=== PATIENT | female | born 1980 | race African-American/Black ===

== ENCOUNTER 2017-02-22 10:44 | Emergency (ER) | payer MEDICAID ==
[~2017-02-22] VITALS: Ht 170.2 cm; Wt 94.0 kg
[~2017-02-22 10:44] MED LIST: AMLO10TA80 PO; GLIP5TAB73 PO; Metformin Hcl PO; OMEP20TA80 PO; SITA25TA3 PO
[2017-02-22 12:13] LABS: BASOPHILS % 0.9 % (0.0-2.0); DIFFERENTIAL COMMENT 0; EOSINOPHILS % 0.6 % (0.0-5.0); HEMATOCRIT. 34.6 % (36.0-48.0); HEMOGLOBIN. 10.9 g/dL (12.0-16.0); LYMPHOCYTES % 36.9 % (20.0-50.0); MEAN CORPUSCULAR HGB CONC 31.6 g/dL (31.0-37.0); MEAN CORPUSCULAR VOLUME 72.6 fL (81.0-99.0); MEAN PLATELET VOLUME 7.6 fl (7.4-10.4); MONOCYTES % 6.5 % (2.0-8.0); NEUTROPHILS % 55.1 % (40.0-76.0); PLATELET 400 x1000/uL (130-400); RED BLOOD CELL COUNT 4.76 mill/uL (4.2-5.4); RED CELL DISTRIBUTION WIDTH 17.7 % (11.6-14.6); WHITE BLOOD COUNT 7.5 x1000/uL (4.5-11.0)
[2017-02-22 12:22] LABS: ALBUMIN 3.3 g/dL (3.4-5.0); ANION GAP 11; CALCIUM 9.4 mg/dL (8.5-10.1); CARBON DIOXIDE 25 mEq/L (21-32); CHLORIDE 107 mEq/L (98-107); INDEX HEMOLYSI 1 (1-3); INDEX ICTERIC 1 (1-4); INDEX LIPEMIC 1 (1-3); UREA NITROGEN BLOOD 5 mg/dL (7-21)
[2017-02-22 12:31] LABS: ALANINE AMINOTRANSFERASE 32 IU/L (13-61); eGFR > 60 mL/min (>60)
[2017-02-22 12:40] LABS: B-HCG QUANTITATIVE 17398 mIU/mL (<3)
[2017-02-22 13:35] LABS: HCG SCREEN POSITIVE
[2017-02-22 13:35] LABS: CLARITY URINE CLOUDY (CLEAR); COLOR URINE DARK YELLOW (YELLOW); GLUCOSE URINE NEGATIVE (NEGATIVE); KETONES URINE TRACE (NEGATIVE); LEUKOCYTE ESTERASE URINE NEGATIVE (NEGATIVE); NITRITE URINE NEGATIVE (NEGATIVE); OCCULT BLOOD URINE NEGATIVE (NEGATIVE); PROTEIN URINE NEGATIVE (NEGATIVE); SPECIFIC GRAVITY URINE 1.026 (1.005-1.030)
[2017-02-22 13:57] LABS: CALCIUM OXALATE CRYSTALS URINE 2+ /lpf
[2017-02-22 13:58] LABS: BACTERIA URINE TRACE; MUCUS URINE 1+ /lpf (< = 2+); SQUAMOUS EPITHELIAL CELL URINE 1+ /lpf (RARE/1+)
[2017-02-22 13:59] LABS: RBC URINE NONE SEEN /hpf (0-2); WBC URINE 0-2 /hpf (0-2)
[2017-02-22 14:20] VITALS: BP 122/86
== END 2017-02-22 14:21 | disposition home or self-care (01) ==
LOC: ER 12:40
DX: O24.311 Unspecified pre-existing diabetes mellitus in pregnancy, first trimester (principal); E11.9 Type 2 diabetes mellitus without complications; O10.919 Unspecified pre-existing hypertension complicating pregnancy, unspecified trimester; O26.891 Other specified pregnancy related conditions, first trimester; J45.909 Unspecified asthma, uncomplicated; K21.9 Gastro-esophageal reflux disease without esophagitis; Z3A.00 Weeks of gestation of pregnancy not specified
CPT/HCPCS: 36415; 80053; 81001; 84702; 84703; 85025; 99284

== ENCOUNTER 2017-03-19 07:18 | Emergency (ER) | payer MEDICAID ==
[~2017-03-19] VITALS: Ht 170.2 cm; Wt 94.0 kg
[2017-03-19] MEDS ORDERED: ACETAMINOPHEN 325MG TABLET PO ONE (08:00)
[2017-03-19 08:03] VITALS: BP 141/84
[2017-03-19 09:02] LABS: DIFFERENTIAL COMMENT 0; EOSINOPHILS % 0.5 % (0.0-5.0); HEMOGLOBIN. 10.8 g/dL (12.0-16.0); LYMPHOCYTES % 24.4 % (20.0-50.0); MEAN CORPUSCULAR HEMOGLOBIN 22.8 pg (28.0-32.0); MEAN CORPUSCULAR HGB CONC 31.7 g/dL (31.0-37.0); MEAN PLATELET VOLUME 7.1 fl (7.4-10.4); MONOCYTES % 5.9 % (2.0-8.0); NEUTROPHILS % 68.2 % (40.0-76.0); PLATELET 428 x1000/uL (130-400); RED BLOOD CELL COUNT 4.73 mill/uL (4.2-5.4); RED CELL DISTRIBUTION WIDTH 17.3 % (11.6-14.6)
[2017-03-19 09:30] LABS: ALANINE AMINOTRANSFERASE 27 IU/L (13-61); ALBUMIN 2.9 g/dL (3.4-5.0); ANION GAP 12; CALCIUM 8.9 mg/dL (8.5-10.1); CARBON DIOXIDE 24 mEq/L (21-32); CHLORIDE 104 mEq/L (98-107); INDEX HEMOLYSI 1 (1-3); INDEX ICTERIC 1 (1-4); INDEX LIPEMIC 1 (1-3); UREA NITROGEN BLOOD 7 mg/dL (7-21); eGFR > 60 mL/min (>60)
[2017-03-19 09:36] LABS: B-HCG QUANTITATIVE 101754 mIU/mL (<3)
[2017-03-19 10:32] LABS: CLARITY URINE CLOUDY (CLEAR); COLOR URINE YELLOW (YELLOW); GLUCOSE URINE NEGATIVE (NEGATIVE); KETONES URINE TRACE (NEGATIVE); LEUKOCYTE ESTERASE URINE TRACE (NEGATIVE); NITRITE URINE NEGATIVE (NEGATIVE); OCCULT BLOOD URINE TRACE (NEGATIVE); PROTEIN URINE NEGATIVE (NEGATIVE); SPECIFIC GRAVITY URINE 1.023 (1.005-1.030)
[2017-03-19 10:45] LABS: SQUAMOUS EPITHELIAL CELL URINE FEW /lpf (RARE/1+)
[2017-03-19 10:46] LABS: BACTERIA URINE TRACE
[2017-03-22 04:25] LABS: CHLAMYDIA TRACHOMATIS NAA Negative (Negative); NEISSERIA GONORRHOEAE NAA Negative (Negative)
== END 2017-03-19 12:56 | disposition home or self-care (01) ==
LOC: ER 07:18
DX: O26.891 Other specified pregnancy related conditions, first trimester (principal); R10.30 Lower abdominal pain, unspecified; J45.909 Unspecified asthma, uncomplicated; E11.9 Type 2 diabetes mellitus without complications; K21.9 Gastro-esophageal reflux disease without esophagitis; I10 Essential (primary) hypertension; Z79.4 Long term (current) use of insulin; Z79.899 Other long term (current) drug therapy; Z3A.09 9 weeks gestation of pregnancy
CPT/HCPCS: 36415; 76801; 76817; 80053; 81001; 82962; 84702; 85025; 86850; 86900; 86901; 87210; 87491; 87591; 99285; Z7610

== ENCOUNTER 2017-05-18 08:14 | Emergency (ER) | payer MEDICAID ==
[~2017-05-18] VITALS: Ht 170.2 cm; Wt 96.0 kg
[2017-05-18 08:59] LABS: BASOPHILS % 0.6 % (0.0-2.0); EOSINOPHILS % 0.8 % (0.0-5.0); HEMOGLOBIN. 10.9 g/dL (12.0-16.0); LYMPHOCYTES % 26.3 % (20.0-50.0); MEAN CORPUSCULAR HEMOGLOBIN 23.5 pg (28.0-32.0); MEAN CORPUSCULAR VOLUME 73.5 fL (81.0-99.0); MEAN PLATELET VOLUME 7.6 fl (7.4-10.4); MONOCYTES % 6.3 % (2.0-8.0); PLATELET 371 x1000/uL (130-400); RED BLOOD CELL COUNT 4.62 mill/uL (4.2-5.4)
[2017-05-18 09:05] LABS: CLARITY URINE CLOUDY (CLEAR); COLOR URINE DARK YELLOW (YELLOW); GLUCOSE URINE NEGATIVE (NEGATIVE); KETONES URINE TRACE (NEGATIVE); LEUKOCYTE ESTERASE URINE 1+ (NEGATIVE); NITRITE URINE NEGATIVE (NEGATIVE); OCCULT BLOOD URINE NEGATIVE (NEGATIVE); PH URINE 6.5 (4.5-8.0); PROTEIN URINE NEGATIVE (NEGATIVE)
[2017-05-18 09:07] LABS: CARBON DIOXIDE 22 mEq/L (21-32); CHLORIDE 104 mEq/L (98-107)
[2017-05-18 09:30] LABS: B-HCG QUANTITATIVE 16474 mIU/mL (<3)
[2017-05-18] MEDS ORDERED: CEPHALEXIN 500MG CAPSULE PO ONE (13:00)
[2017-05-18] MEDS ORDERED: IBUPROFEN 400MG TABLET PO ONE (13:00)
[2017-05-18 13:06] VITALS: BP 130/75
== END 2017-05-18 13:08 | disposition home or self-care (01) ==
LOC: ER 08:14
DX: O20.0 Threatened abortion (principal); O23.42 Unspecified infection of urinary tract in pregnancy, second trimester; K21.9 Gastro-esophageal reflux disease without esophagitis; J45.909 Unspecified asthma, uncomplicated; E11.9 Type 2 diabetes mellitus without complications; I10 Essential (primary) hypertension; Z3A.18 18 weeks gestation of pregnancy; Z37.9 Outcome of delivery, unspecified
CPT/HCPCS: 36415; 76805; 80048; 81001; 81025; 84702; 85025; 99285; Z7610

== ENCOUNTER 2017-05-21 09:27 | Emergency (ER) | payer MEDICAID ==
[~2017-05-21] VITALS: Ht 170.2 cm; Wt 96.0 kg
[2017-05-21] MEDS ORDERED: ACETAMINOPHEN 325MG TABLET PO STA (10:05)
[2017-05-21] MEDS ORDERED: SODIUM CHLORIDE 0.9% 500 ML IV ONE (10:30)
[2017-05-21 10:32] LABS: CLARITY URINE CLOUDY (CLEAR); COLOR URINE YELLOW (YELLOW); GLUCOSE URINE NEGATIVE (NEGATIVE); KETONES URINE TRACE (NEGATIVE); LEUKOCYTE ESTERASE URINE 1+ (NEGATIVE); NITRITE URINE NEGATIVE (NEGATIVE); OCCULT BLOOD URINE NEGATIVE (NEGATIVE); PROTEIN URINE NEGATIVE (NEGATIVE); SPECIFIC GRAVITY URINE 1.017 (1.005-1.030)
[2017-05-21 10:41] LABS: BASOPHILS % 0.5 % (0.0-2.0); EOSINOPHILS % 0.4 % (0.0-5.0); HEMATOCRIT. 32.6 % (36.0-48.0); HEMOGLOBIN. 10.5 g/dL (12.0-16.0); MEAN CORPUSCULAR HEMOGLOBIN 23.5 pg (28.0-32.0); MEAN CORPUSCULAR VOLUME 72.8 fL (81.0-99.0); MEAN PLATELET VOLUME 7.6 fl (7.4-10.4); MONOCYTES % 6.1 % (2.0-8.0); PLATELET 348 x1000/uL (130-400); RED BLOOD CELL COUNT 4.48 mill/uL (4.2-5.4)
[2017-05-21 10:53] LABS: *AMPHETAMINES SCREEN URINE NEGATIVE (NEGATIVE); *BARBITURATES SCREEN URINE NEGATIVE (NEGATIVE); *BENZODIAZEPINES SCREEN URINE NEGATIVE (NEGATIVE); *COCAINE SCREEN URINE NEGATIVE (NEGATIVE); METHADONE URINE SCREEN NEGATIVE (NEGATIVE); OPIATES URINE SCREEN NEGATIVE (NEGATIVE); PHENCYCLIDINE URINE SCREEN NEGATIVE (NEGATIVE)
[2017-05-21 10:56] LABS: CANNABINOID URINE SCREEN PRESUMTIVE POSITIVE (NEGATIVE)
[2017-05-21 11:01] LABS: CARBON DIOXIDE 25 mEq/L (21-32); CHLORIDE 104 mEq/L (98-107)
[2017-05-21 11:09] LABS: B-HCG QUANTITATIVE 11865 mIU/mL (<3)
[2017-05-21 11:31] VITALS: BP 114/60
== END 2017-05-21 11:58 | disposition home or self-care (01) ==
LOC: ER 10:44
DX: O23.42 Unspecified infection of urinary tract in pregnancy, second trimester (principal); O34.12 Maternal care for benign tumor of corpus uteri, second trimester; K21.9 Gastro-esophageal reflux disease without esophagitis; E11.9 Type 2 diabetes mellitus without complications; J45.909 Unspecified asthma, uncomplicated; I10 Essential (primary) hypertension; Z3A.19 19 weeks gestation of pregnancy; Z87.891 Personal history of nicotine dependence
CPT/HCPCS: 36415; 76805; 80053; 80305; 81001; 83690; 84702; 85025; 85610; 87086; 96360; 99285; J7030; J7040; Z7610

== ENCOUNTER 2017-06-24 07:10 | Observation (INO) | payer MEDICAID ==
[2017-06-24] MEDS ORDERED: LACTATED RINGERS 1,000 ML IV SCH (07:46)
[2017-06-24 08:39] LABS: BASOPHILS % 0.8 % (0.0-2.0); HEMATOCRIT. 31.9 % (36.0-48.0); HEMOGLOBIN. 10.2 g/dL (12.0-16.0); LYMPHOCYTES % 27.1 % (20.0-50.0); MEAN CORPUSCULAR HEMOGLOBIN 23.5 pg (28.0-32.0); MEAN CORPUSCULAR VOLUME 73.4 fL (81.0-99.0); MEAN PLATELET VOLUME 8.2 fl (7.4-10.4); MONOCYTES % 5.6 % (2.0-8.0); NEUTROPHILS % 65.5 % (40.0-76.0); PLATELET 344 x1000/uL (130-400); RED BLOOD CELL COUNT 4.34 mill/uL (4.2-5.4); RED CELL DISTRIBUTION WIDTH 16.8 % (11.6-14.6)
[2017-06-24 08:40] LABS: CLARITY URINE CLOUDY (CLEAR); COLOR URINE DARK YELLOW (YELLOW); GLUCOSE URINE NEGATIVE (NEGATIVE); KETONES URINE TRACE (NEGATIVE); LEUKOCYTE ESTERASE URINE 1+ (NEGATIVE); NITRITE URINE NEGATIVE (NEGATIVE); OCCULT BLOOD URINE NEGATIVE (NEGATIVE); PH URINE 6.5 (4.5-8.0); PROTEIN URINE 1+ (NEGATIVE); SPECIFIC GRAVITY URINE 1.036 (1.005-1.030)
[2017-06-24 08:41] LABS: CHLORIDE 105 mEq/L (98-107)
[2017-06-24 08:49] LABS: CARBON DIOXIDE 19 mEq/L (21-32)
[2017-06-24] MEDS ORDERED: LABE100T PO (09:04)
== END 2017-06-24 09:45 | disposition home or self-care (01) ==
LOC: L&D 07:10
PROVIDERS: ADMIT Obstetrics & Gynecology; ATTEND Obstetrics & Gynecology
DX: O26.892 Other specified pregnancy related conditions, second trimester (principal); M54.9 Dorsalgia, unspecified; R10.9 Unspecified abdominal pain; O10.912 Unspecified pre-existing hypertension complicating pregnancy, second trimester; O24.112 Pre-existing type 2 diabetes mellitus, in pregnancy, second trimester; E11.9 Type 2 diabetes mellitus without complications; Z3A.24 24 weeks gestation of pregnancy
CPT/HCPCS: 36415; 80053; 81001; 83036; 85025; 96360; 96361; 99281; G0378; J7120

== ENCOUNTER 2017-06-25 06:45 | Emergency (ER) | payer MEDICAID ==
[~2017-06-25] VITALS: Ht 167.6 cm; Wt 100.0 kg
[~2017-06-25 06:45] MED LIST changes: +LABE100T PO
[2017-06-25 06:48] VITALS: BP 139/97
[2017-06-25] MEDS ORDERED: CITRIC ACID/SODIUM CITRATE SOLN 30ML UDC PO NR (09:00)
== END 2017-06-25 09:50 | disposition home or self-care (01) ==
LOC: ER 06:55 → L&D 07:25
PROVIDERS: ADMIT Obstetrics & Gynecology; ATTEND Obstetrics & Gynecology
DX: O26.892 Other specified pregnancy related conditions, second trimester (principal); R10.9 Unspecified abdominal pain; M54.9 Dorsalgia, unspecified; Z3A.24 24 weeks gestation of pregnancy
CPT/HCPCS: 99281; 99285; G0378; Z7610; J7120

== ENCOUNTER 2017-07-14 15:14 | Observation (INO) | payer MEDICAID, OTHER ==
[~2017-07-14] VITALS: Ht 170.2 cm; Wt 96.6 kg
[~2017-07-14 15:14] MED LIST changes: -AMLO10TA80 PO; -GLIP5TAB73 PO; -LABE100T PO; -OMEP20TA80 PO; -SITA25TA3 PO
[2017-07-14 18:52] LABS: CLARITY URINE CLEAR (CLEAR); COLOR URINE YELLOW (YELLOW); GLUCOSE URINE NEGATIVE (NEGATIVE); KETONES URINE 1+ (NEGATIVE); LEUKOCYTE ESTERASE URINE NEGATIVE (NEGATIVE); NITRITE URINE NEGATIVE (NEGATIVE); OCCULT BLOOD URINE NEGATIVE (NEGATIVE); PH URINE 6.5 (4.5-8.0); PROTEIN URINE TRACE (NEGATIVE); SPECIFIC GRAVITY URINE 1.031 (1.005-1.030)
[2017-07-14] MEDS ORDERED: LACTATED RINGERS 1,000 ML IV SCH ×2 (19:15→23:45)
[2017-07-14] MEDS ORDERED: CEFAZOLIN 2,000 MG in DEXT 5% WATER 100 ML IV NR (20:00)
[2017-07-14] MEDS ORDERED: ACETAMINOPHEN 500MG TABLET PO NR (23:45)
== END 2017-07-14 21:00 | disposition home or self-care (01) ==
LOC: L&D 15:14
PROVIDERS: ADMIT Obstetrics & Gynecology; ATTEND Obstetrics & Gynecology
DX: O62.9 Abnormality of forces of labor, unspecified (principal); O26.892 Other specified pregnancy related conditions, second trimester; R10.30 Lower abdominal pain, unspecified; Z3A.00 Weeks of gestation of pregnancy not specified
CPT/HCPCS: 81001; 96361; 96365; 99281; G0378; J0690; J7120; 96360; J7060

== ENCOUNTER 2017-10-12 14:54 | Emergency (ER) | payer MEDICAID, OTHER ==
[~2017-10-12] VITALS: Ht 167.6 cm; Wt 91.0 kg
[2017-10-12] MEDS ORDERED: [UNRECOGNIZED DRUG - CODE] IV (15:08)
[2017-10-12] MEDS ORDERED: FERR220S12 PO (15:08)
[2017-10-12] MEDS ORDERED: OMEP20CA10 PO (15:08)
[2017-10-12] MEDS ORDERED: ONDANSETRON HCL 4MG/2ML VIAL IV STA (16:04)
[2017-10-12] MEDS ORDERED: KETOROLAC 30MG/ML VIAL IV STA (16:04)
[2017-10-12] MEDS ORDERED: SODIUM CHLORIDE 0.9% 1,000 ML IV ONE (16:04)
[2017-10-12 16:22] LABS: CLARITY URINE TURBID (CLEAR); COLOR URINE YELLOW (YELLOW); GLUCOSE URINE NEGATIVE (NEGATIVE); KETONES URINE NEGATIVE (NEGATIVE); LEUKOCYTE ESTERASE URINE 3+ (NEGATIVE); NITRITE URINE POSITIVE (NEGATIVE); OCCULT BLOOD URINE 3+ (NEGATIVE); PROTEIN URINE 3+ (NEGATIVE); SPECIFIC GRAVITY URINE 1.026 (1.005-1.030)
[2017-10-12 16:34] LABS: HEMATOCRIT. 35.7 % (36.0-48.0); HEMOGLOBIN. 11.2 g/dL (12.0-16.0); MEAN CORPUSCULAR VOLUME 76.6 fL (81.0-99.0); PLATELET 325 x1000/uL (130-400); RED BLOOD CELL COUNT 4.66 mill/uL (4.2-5.4); RED CELL DISTRIBUTION WIDTH 15.7 % (11.6-14.6)
[2017-10-12 16:37] LABS: CHLORIDE 104 mEq/L (98-107); PROTHROMBIN TIME 10.7 sec (9.4-11.6)
[2017-10-12 16:47] LABS: CARBON DIOXIDE 27 mEq/L (21-32)
[2017-10-12 16:48] LABS: B-HCG QUANTITATIVE 72 mIU/mL (<3)
[2017-10-12 16:52] LABS: PLATELET ESTIMATE NORMAL
[2017-10-12] MEDS ORDERED: CEFTRIAXONE 1 G PREMIX 50 ML IV ONE (17:15)
[2017-10-12 19:12] VITALS: BP 132/74
== END 2017-10-12 19:19 | disposition home or self-care (01) ==
LOC: ER 15:24
DX: N10 Acute pyelonephritis (principal); I10 Essential (primary) hypertension; E11.9 Type 2 diabetes mellitus without complications
CPT/HCPCS: 36415; 80053; 81001; 81025; 82962; 83690; 84702; 85025; 85610; 96361; 96365; 96375; 99285; J0696; J1885; J2405; J7030; Z7610

== ENCOUNTER 2018-07-01 10:08 | Emergency (ER) | payer MEDICAID ==
[~2018-07-01] VITALS: Ht 167.6 cm; Wt 100.0 kg
[~2018-07-01 10:08] MED LIST changes: +FERR220S12 PO; +OMEP20CA10 PO; +[UNRECOGNIZED DRUG - CODE] IV
[2018-07-01] MEDS ORDERED: SODIUM CHLORIDE 0.9% 1,000 ML IV ONE (11:27)
[2018-07-01 12:33] LABS: BASOPHILS % 0.8 % (0.0-2.0); EOSINOPHILS % 0.9 % (0.0-5.0); HEMATOCRIT. 38.5 % (36.0-48.0); HEMOGLOBIN. 12.6 g/dL (12.0-16.0); LYMPHOCYTES % 42.1 % (20.0-50.0); MEAN CORPUSCULAR HEMOGLOBIN 25.4 pg (28.0-32.0); MEAN CORPUSCULAR VOLUME 77.7 fL (81.0-99.0); MEAN PLATELET VOLUME 8.5 fl (7.4-10.4); MONOCYTES % 7.5 % (2.0-8.0); NEUTROPHILS % 48.7 % (40.0-76.0); PLATELET 331 x1000/uL (130-400); RED BLOOD CELL COUNT 4.95 mill/uL (4.2-5.4)
[2018-07-01 12:37] LABS: CHLORIDE 103 mEq/L (98-107)
[2018-07-01 12:46] LABS: BETA HYDROXYBUTYRATE 0.8 mMol/L (0.0-0.3)
[2018-07-01] MEDS ORDERED: METFORMIN HCL 500MG TABLET PO ONE (13:00)
[2018-07-01 13:23] VITALS: BP 142/88
[2018-07-01] MEDS ORDERED: GLIPIZIDE 10MG TABLET PO SCH (13:30)
[2018-07-02] MEDS ORDERED: GLIPIZIDE 10MG TABLET PO SCH (07:00)
== END 2018-07-01 13:31 | disposition home or self-care (01) ==
LOC: ER 12:29
DX: E11.65 Type 2 diabetes mellitus with hyperglycemia (principal); I10 Essential (primary) hypertension; K21.9 Gastro-esophageal reflux disease without esophagitis; Z79.84 Long term (current) use of oral hypoglycemic drugs
CPT/HCPCS: 36415; 80053; 81025; 82010; 85025; 96360; 96361; 99285; J7030

== ENCOUNTER 2018-09-10 15:46 | Inpatient (IN) | payer MEDICAID ==
[~2018-09-10] VITALS: Ht 180.3 cm; Wt 120.0 kg
[2018-09-10] MEDS ORDERED: SODIUM CHLORIDE 0.9% 1,000 ML IV ONE ×2 (17:03→17:48)
[2018-09-10] MEDS ORDERED: FAMOTIDINE 20MG/2ML VIAL IV ONE (17:15)
[2018-09-10] MEDS ORDERED: ONDANSETRON HCL 4MG/2ML INJ IV ONE (17:15)
[2018-09-10 17:25] LABS: EOSINOPHILS % 0.5 % (0.0-5.0); HEMATOCRIT. 42.9 % (36.0-48.0); HEMOGLOBIN. 13.5 g/dL (12.0-16.0); LYMPHOCYTES % 30.9 % (20.0-50.0); MEAN CORPUSCULAR HEMOGLOBIN 25.4 pg (28.0-32.0); MEAN CORPUSCULAR VOLUME 80.6 fL (81.0-99.0); MEAN PLATELET VOLUME 9.9 fl (7.4-10.4); MONOCYTES % 8.1 % (2.0-8.0); NEUTROPHILS % 59.5 % (40.0-76.0); PLATELET 283 x1000/uL (130-400); PROTHROMBIN TIME 9.6 sec (9.1-11.1); RED BLOOD CELL COUNT 5.33 mill/uL (4.2-5.4); RED CELL DISTRIBUTION WIDTH 16.4 % (11.6-14.6)
[2018-09-10 17:26] LABS: CHLORIDE 97 mEq/L (98-107)
[2018-09-10 17:27] LABS: ETHANOL BLOOD < 10 mg/dL
[2018-09-10 17:29] LABS: HCG SCREEN NEGATIVE
[2018-09-10 17:49] LABS: *AMPHETAMINES SCREEN URINE NEGATIVE (NEGATIVE); *BARBITURATES SCREEN URINE NEGATIVE (NEGATIVE); *BENZODIAZEPINES SCREEN URINE NEGATIVE (NEGATIVE); *COCAINE SCREEN URINE NEGATIVE (NEGATIVE); CLARITY URINE CLEAR (CLEAR); COLOR URINE YELLOW (YELLOW); KETONES URINE 4+ (NEGATIVE); LEUKOCYTE ESTERASE URINE NEGATIVE (NEGATIVE); METHADONE URINE SCREEN NEGATIVE (NEGATIVE); NITRITE URINE NEGATIVE (NEGATIVE); OCCULT BLOOD URINE NEGATIVE (NEGATIVE); OPIATES URINE SCREEN NEGATIVE (NEGATIVE); PH URINE 5.5 (4.5-8.0); PHENCYCLIDINE URINE SCREEN NEGATIVE (NEGATIVE); PROTEIN URINE NEGATIVE (NEGATIVE); SPECIFIC GRAVITY URINE 1.037 (1.005-1.030); UROBILINOGEN URINE 0.2 E.U./dL (0.2-1.0)
[2018-09-10 17:59] LABS: CANNABINOID URINE SCREEN PRESUMTIVE POSITIVE (NEGATIVE)
[2018-09-10] MEDS ORDERED: INSULIN REGULAR (HUMULIN R) 300UNITS/3ML IV ONE (18:00)
[2018-09-10] MEDS: SODIUM CHLORIDE 0.45% 1,000 ML IV SCH (19:22)
[2018-09-10] MEDS ORDERED: IPRATROPIUM/ALBUTEROL 0.5-3(2.5)MG/3ML NEB INH PRN (19:30)
[2018-09-10] MEDS ORDERED: DIPHENHYDRAMINE 50MG/ML VIAL IV PRN (19:30)
[2018-09-10] MEDS ORDERED: DOCUSATE SODIUM 100MG CAPSULE PO PRN (19:30)
[2018-09-10] MEDS ORDERED: GUAIFENESIN 200MG/10ML SUGAR FREE UDC PO PRN (19:30)
[2018-09-10] MEDS ORDERED: ACETAMINOPHEN 325MG TABLET PO PRN (19:30)
[2018-09-10] MEDS ORDERED: ONDANSETRON HCL 4MG/2ML INJ IV PRN (19:30)
[2018-09-10] MEDS ORDERED: CLONIDINE 0.1MG TABLET PO PRN (19:30)
[2018-09-10] MEDS ORDERED: LORAZEPAM 2MG/ML CPJ IV PRN (19:30)
[2018-09-10] MEDS ORDERED: HYDROMORPHONE HCL/PF 2MG/ML CPJ IV PRN (19:30)
[2018-09-10] MEDS ORDERED: MAGNESIUM/ALUMINUM HYDROXIDE/SIMETHICONE 30ML UDC PO PRN (19:30)
[2018-09-10] MEDS ORDERED: NA PHOS,M-B/NA PHOS,DI-BA ENEMA 118ML PR PRN (19:30)
[2018-09-10] MEDS ORDERED: HYDROCODONE/ACETAMINOPHEN 5/325MG TABLET PO PRN (19:30)
[2018-09-10 23:31] LABS: CHLORIDE 103 mEq/L (98-107)
[2018-09-11 04:35] LABS: EOSINOPHILS % 0.6 % (0.0-5.0); HEMATOCRIT. 38.7 % (36.0-48.0); HEMOGLOBIN. 12.1 g/dL (12.0-16.0); LYMPHOCYTES % 38.4 % (20.0-50.0); MEAN CORPUSCULAR HEMOGLOBIN 25.2 pg (28.0-32.0); MEAN CORPUSCULAR VOLUME 80.8 fL (81.0-99.0); MEAN PLATELET VOLUME 8.8 fl (7.4-10.4); MONOCYTES % 9.9 % (2.0-8.0); NEUTROPHILS % 50.1 % (40.0-76.0); PLATELET 249 x1000/uL (130-400); RED BLOOD CELL COUNT 4.79 mill/uL (4.2-5.4); RED CELL DISTRIBUTION WIDTH 16.3 % (11.6-14.6)
[2018-09-11 04:43] LABS: CHLORIDE 103 mEq/L (98-107)
[2018-09-11 04:48] LABS: HDL CHOLESTEROL 29 mg/dL (40-59); LDL CHOLESTEROL 148 mg/dL (5-100)
[2018-09-11] MEDS: SODIUM CHLORIDE 0.45% 1,000 ML IV SCH (05:22)
[2018-09-11 09:00] VITALS: BP 127/96
[2018-09-11] MEDS ORDERED: ENOXAPARIN 30MG/0.3ML SYR SUBCUT SCH (10:30)
[2018-09-11 12:00] VITALS: BP 131/90
[2018-09-11 12:06] VITALS: BP 131/90
== END 2018-09-11 13:00 | disposition home or self-care (01) | DRG 422 ==
LOC: ER 16:03 → 6WST 18:43 → ENRESERV 09-11 07:19
PROVIDERS: ADMIT Internal Medicine; ATTEND Internal Medicine
DX: E86.0 Dehydration (principal); E88.89 Other specified metabolic disorders; E11.9 Type 2 diabetes mellitus without complications; I10 Essential (primary) hypertension; K21.9 Gastro-esophageal reflux disease without esophagitis; N76.0 Acute vaginitis
CPT/HCPCS: 36415; 71045; 80048; 80061; 80305; 82010; 82962; 83605; 83880; 84145; 84439; 84443; 84484; 84703; 93005; 96361; 96374; 96375; 99291; G0482; J1650; J1815; J2405; J3490; J7030

== ENCOUNTER 2022-03-17 08:38 | Emergency (ER) | payer MEDICAID ==
[~2022-03-17] VITALS: Ht 165.1 cm; Wt 90.0 kg
[~2022-03-17 08:38] MED LIST changes: -OMEP20CA10 PO; +OMEP20CA14 PO
[2022-03-17] MEDS ORDERED: ACETAMINOPHEN 325MG TABLET PO STA (08:56)
[2022-03-17] MEDS ORDERED: ONDANSETRON HCL 4MG/2ML INJ IV STA (08:56)
[2022-03-17] MEDS ORDERED: MAGNESIUM/ALUMINUM HYDROXIDE/SIMETHICONE 30ML UDC PO ONE (09:00)
[2022-03-17] MEDS ORDERED: SODIUM CHLORIDE 0.9% 1,000 ML IV ONE (09:00)
[2022-03-17 09:28] LABS: HEMATOCRIT. 34.4 % (36.0-48.0); HEMOGLOBIN. 10.8 g/dL (12.0-16.0); MEAN CORPUSCULAR HEMOGLOBIN 20.6 pg (28.0-32.0); MEAN CORPUSCULAR VOLUME 65.6 fL (81.0-99.0); MEAN PLATELET VOLUME 7.9 fl (7.4-10.4); PLATELET 348 x1000/uL (130-400); RED BLOOD CELL COUNT 5.24 mill/uL (4.2-5.4); RED CELL DISTRIBUTION WIDTH 19.6 % (11.6-14.6)
[2022-03-17 09:35] LABS: CHLORIDE 103 mEq/L (98-107)
[2022-03-17 09:48] LABS: HCG SCREEN NEGATIVE
[2022-03-17] MEDS ORDERED: POTASSIUM CHLORIDE 20MEQ TABLET SR PO NR (10:30)
[2022-03-17] MEDS ORDERED: ACETAMINOPHEN 325MG TABLET PO NR (10:34)
[2022-03-17] MEDS ORDERED: ONDANSETRON HCL 4MG/2ML INJ IV NR (10:35)
[2022-03-17] MEDS ORDERED: MAGNESIUM/ALUMINUM HYDROXIDE/SIMETHICONE 30ML UDC PO NR (10:35)
[2022-03-17 10:36] LABS: ATYPICAL LYMPHOCYTES 5; PLATELET ESTIMATE NORMAL
[2022-03-17 12:00] VITALS: BP 153/99
[2022-03-17] MEDS ORDERED: FAMO20TA8 MT (12:08)
[2022-03-17] MEDS ORDERED: ONDA4TAB5 MT (12:08)
[2022-03-17] MEDS ORDERED: MAG355OR20 PO (12:08)
== END 2022-03-17 12:47 | disposition home or self-care (01) ==
LOC: ER 08:38
DX: R07.89 Other chest pain (principal); R10.13 Epigastric pain; D64.9 Anemia, unspecified; R11.0 Nausea; I10 Essential (primary) hypertension; E11.9 Type 2 diabetes mellitus without complications; J45.909 Unspecified asthma, uncomplicated; K21.9 Gastro-esophageal reflux disease without esophagitis; F12.10 Cannabis abuse, uncomplicated; F17.210 Nicotine dependence, cigarettes, uncomplicated
CPT/HCPCS: 36415; 71045; 80053; 82962; 84484; 84703; 85025; 93005; 96361; 96374; 96375; 99285; J2405; J7030

== ENCOUNTER 2022-10-18 09:59 | Emergency (ER) | payer MEDICAID ==
[~2022-10-18] VITALS: Ht 170.2 cm; Wt 98.0 kg
[~2022-10-18 09:59] MED LIST changes: +FAMO20TA8 MT; +MAG355OR20 PO; +ONDA4TAB5 MT
[2022-10-18 10:09] VITALS: BP 207/128
[2022-10-18] MEDS ORDERED: HYDRALAZINE HCL 10MG TABLET PO ONE (11:30)
== END 2022-10-18 13:16 | disposition home or self-care (01) ==
LOC: ER 09:59
DX: R05.8 Other specified cough (principal); R09.81 Nasal congestion; R06.7 Sneezing; J34.89 Other specified disorders of nose and nasal sinuses; I10 Essential (primary) hypertension
CPT/HCPCS: 99283

== ENCOUNTER 2022-12-22 21:57 | Observation (INO) | payer MEDICAID ==
[~2022-12-22] VITALS: Ht 172.7 cm; Wt 85.9 kg
[2022-12-22] MEDS ORDERED: MORPHINE SULFATE 4 MG/ML CPJ (NOT FOR IM USE) IV STA (23:35)
[2022-12-22] MEDS ORDERED: METOCLOPRAMIDE HCL 10MG/2ML VIAL IV STA (23:35)
[2022-12-22] MEDS ORDERED: FAMOTIDINE 20MG/2ML VIAL IV STA (23:35)
[2022-12-22] MEDS ORDERED: SODIUM CHLORIDE 0.9% 1,000 ML IV ONE (23:45)
[2022-12-22 23:58] LABS: BASOPHILS % 0.5 % (0.0-2.0); EOSINOPHILS % 1.4 % (0.0-5.0); HEMOGLOBIN. 9.3 g/dL (12.0-16.0); LYMPHOCYTES % 20.1 % (20.0-50.0); MEAN CORPUSCULAR HEMOGLOBIN 20.6 pg (28.0-32.0); MEAN PLATELET VOLUME 8.2 fl (7.4-10.4); MONOCYTES % 6.4 % (2.0-8.0); NEUTROPHILS % 71.6 % (40.0-76.0); PLATELET 495 x1000/uL (130-400); RED BLOOD CELL COUNT 4.48 mill/uL (4.2-5.4); RED CELL DISTRIBUTION WIDTH 19.9 % (11.6-14.6)
[2022-12-23] LABS: CHLORIDE 102 mEq/L (98-107)
[2022-12-23 00:07] LABS: PLATELET ESTIMATE NORMAL
[2022-12-23 00:33] LABS: HCG SCREEN NEGATIVE
[2022-12-23] MEDS ORDERED: KCL 20MEQ/100ML PREMIX 100 ML IV NR (02:30)
[2022-12-23] MEDS ORDERED: POTASSIUM CHLORIDE 20MEQ TABLET SR PO NR ×2 (02:30→10:45)
[2022-12-23] MEDS ORDERED: HYDRALAZINE 20MG/ML VIAL IV NR (02:30)
[2022-12-23] MEDS ORDERED: METOCLOPRAMIDE HCL 10MG/2ML VIAL IV ONE (02:30)
[2022-12-23] MEDS ORDERED: CEFTRIAXONE 1 G PREMIX 50 ML IV ONE (03:45)
[2022-12-23] MEDS ORDERED: MORPHINE SULFATE 4 MG/ML CPJ (NOT FOR IM USE) IV ONE (06:00)
[2022-12-23] MEDS ORDERED: ONDANSETRON HCL 4MG/2ML INJ IV ONE (06:00)
[2022-12-23] MEDS ORDERED: LABETALOL 5MG/ML SYR 20 MG/4 ML SYRINGE IV ONE (06:00)
[2022-12-23] MEDS ORDERED: CEFTRIAXONE 1 G PREMIX 50 ML IV NR (06:30)
[2022-12-23] MEDS ORDERED: ACETAMINOPHEN 325MG TABLET PO PRN (10:45)
[2022-12-23] MEDS ORDERED: HYDRALAZINE HCL 100MG TABLET PO NR (10:45)
[2022-12-23] MEDS ORDERED: ONDANSETRON HCL 4MG/2ML INJ IV PRN (10:45)
[2022-12-23] MEDS ORDERED: NALOXONE HCL 0.4MG/ML VIAL IV PRN (11:00)
[2022-12-23] MEDS: HYDROCODONE/ACETAMINOPHEN 5/325MG TABLET PO PRN ×3 (11:22→20:43)
[2022-12-23] MEDS: AMLODIPINE 10MG TABLET PO SCH (11:22)
[2022-12-23] MEDS ORDERED: PIPERACILLIN/TAZ 3.375G PREMIX 50 ML IV SCH (14:00)
[2022-12-23 15:00] VITALS: BP 188/98
[2022-12-23 16:00] VITALS: BP 188/98
[2022-12-23 20:00] VITALS: BP 181/95
[2022-12-23] MEDS: HYDRALAZINE HCL 100MG TABLET PO SCH (20:42)
[2022-12-23] MEDS: PIPERACILLIN/TAZOBACTAM 3.375 G in DEXTROSE 5% WATER 50 ML IV SCH (21:44)
[2022-12-24] VITALS: BP 175/95
[2022-12-24] MEDS: HYDROCODONE/ACETAMINOPHEN 5/325MG TABLET PO PRN ×3 (00:36→17:49)
[2022-12-24] MEDS: CLONIDINE 0.1MG TABLET PO PRN ×2 (00:36→08:46)
[2022-12-24 04:00] VITALS: BP 157/91
[2022-12-24] MEDS ORDERED: PIPERACILLIN/TAZOBACTAM 3.375 G in DEXTROSE 5% WATER 50 ML IV SCH (06:00)
[2022-12-24 06:09] LABS: BASOPHILS % 0.5 % (0.0-2.0); EOSINOPHILS % 0.2 % (0.0-5.0); HEMATOCRIT. 30.7 % (36.0-48.0); HEMOGLOBIN. 9.7 g/dL (12.0-16.0); LYMPHOCYTES % 29.8 % (20.0-50.0); MEAN CORPUSCULAR HEMOGLOBIN 20.8 pg (28.0-32.0); MEAN PLATELET VOLUME 7.8 fl (7.4-10.4); MONOCYTES % 7.1 % (2.0-8.0); NEUTROPHILS % 62.4 % (40.0-76.0); PLATELET 476 x1000/uL (130-400); RED BLOOD CELL COUNT 4.66 mill/uL (4.2-5.4); RED CELL DISTRIBUTION WIDTH 19.8 % (11.6-14.6)
[2022-12-24 06:13] LABS: CHLORIDE 98 mEq/L (98-107)
[2022-12-24] MEDS: PIPERACILLIN/TAZOBACTAM 3.375 G in DEXTROSE 5% WATER 50 ML IV SCH ×2 (06:18→13:52)
[2022-12-24 08:00] VITALS: BP 170/97
[2022-12-24] MEDS: HYDRALAZINE HCL 100MG TABLET PO SCH (08:46)
[2022-12-24] MEDS: AMLODIPINE 10MG TABLET PO SCH (08:46)
[2022-12-24] MEDS ORDERED: POTASSIUM CHLORIDE 20MEQ TABLET SR PO NR (11:00)
[2022-12-24] MEDS ORDERED: METOPROLOL TARTRATE 50MG TABLET PO NR (12:45)
[2022-12-24] MEDS ORDERED: FAMOTIDINE 20MG/2ML VIAL IV SCH ×2 (13:00→13:15)
[2022-12-24] MEDS ORDERED: DOCUSATE SODIUM 250MG CAPSULE PO SCH (14:45)
[2022-12-24 16:00] VITALS: BP 115/74
[2022-12-24] MEDS ORDERED: HYDRALAZINE HCL 100MG TABLET PO SCH (17:00)
[2022-12-24 20:00] VITALS: BP 122/79
[2022-12-24 20:22] VITALS: BP 122/79
[2022-12-24] MEDS ORDERED: METOPROLOL TARTRATE 50MG TABLET PO SCH (21:00)
== END 2022-12-24 20:55 | disposition home or self-care (01) ==
LOC: ER 21:57 → MICUSO 12-23 08:00 → 7WST 12-23 17:00
PROVIDERS: ADMIT Internal Medicine; ATTEND Internal Medicine
DX: K80.62 Calculus of gallbladder and bile duct with acute cholecystitis without obstruction (principal); E87.6 Hypokalemia; K21.9 Gastro-esophageal reflux disease without esophagitis; I16.0 Hypertensive urgency; I10 Essential (primary) hypertension; J45.909 Unspecified asthma, uncomplicated; D64.9 Anemia, unspecified; E11.9 Type 2 diabetes mellitus without complications; E44.1 Mild protein-calorie malnutrition; Z79.899 Other long term (current) drug therapy; Z98.890 Other specified postprocedural states; Z79.84 Long term (current) use of oral hypoglycemic drugs; Z68.28 Body mass index [BMI] 28.0-28.9, adult
CPT/HCPCS: 36415; 71045; 74176; 76705; 80048; 80053; 83605; 83690; 83735; 84132; 84703; 85025; 96361; 96365; 96366; 96367; 96375; 96376; 99291; G0378; J0360; J0696; J2270; J2405; J2543; J2765; J3480; J3490; J7030; J7060